=== PATIENT | female | born 1940 | race Caucasian/White ===

== ENCOUNTER 2025-01-15 14:01 | Emergency (ER) | payer MEDICARE, SELFPAY ==
[2025-01-15 14:31] VITALS: BP 159/74; PULSE 82; RESP 20; TEMP 36.7; O2SAT 97
--- NOTE | 2025-01-15 14:45 | ED.URI ---
HPI - URI/Sore Throat General Chief Complaint: Upper Respiratory Infection Stated Complaint: cold symptoms/cough Time Seen by Provider: 01/15/25 14:40 Source: patient, RN notes reviewed and old records reviewed Mode of arrival: ambulatory Limitations: no limitations History of Present Illness HPI Narrative: 84 yea benjamín female presents to [facility] care accompanied by sister with complaints of 3 day history of head cold with cough noted last evening. Patient reports concern for illness because she is prone for bronchitis. Patient is resident at [facility] she reports for the past 3 years. Sister reports to staff that patient does have history of dementia.Patient reports no ear pain or any sore throat and states she doesn't think she has had fevers and has no body aches anymore than usual. Patient reports that she has taken an allergy pill which hasn't helped. MD elicited complaint: cough, rhinorrhea, nasal congestion and sinus pain Pertinent past history: other (bronchitis) Onset (ago): day(s) (3 days) Severity: mild Description of mucous: yellow Able to tolerate fluids by mouth: Yes Treatments prior to arrival: other (allergy pill) Related Data Home Medications ?Medication ?Instructions ?Recorded ?Confirmed ?Last Taken ?Type clopidogrel 75 mg tablet mg 01/15/25 Unknown History ezetimibe 10 mg-simvastatin 40 mg tablet 01/15/25 Unknown History tablet famotidine 40 mg tablet mg 01/15/25 Unknown History fenofibrate nanocrystallized 145 mg PO 01/15/25 Unknown History mg tablet lactulose 10 gram/15 mL oral 01/15/25 Unknown History solution losartan 25 mg tablet mg 01/15/25 Unknown History memantine 5 mg tablet mg 01/15/25 Unknown History metformin 500 mg tablet,extended mg PO 01/15/25 Unknown History release 24 hr metronidazole 1 % topical gel topical 01/15/25 Unknown History venlafaxine 150 mg mg PO 01/15/25 Unknown History capsule,extended release 24 hr Allergies Allergy/AdvReac Type Severity Reaction Status Date / Time No Known Allergies Allergy Verified 01/15/25 14:28 Review of Systems Review of Systems: CONSTITUTIONAL: Denies malaise, chills, sweats, or fever. EYES: Denies visual changes, redness, or discharge. ENT: Reports rhinorrhea, congestion, sinus pain, otalgia and sore throat. CARDIOVASCULAR: Denies chest pain, palpitations, or edema. RESPIRATORY: Reports cough.? Denies dyspnea. GASTROINTESTINAL: Denies abdominal pain, nausea, vomiting, diarrhea SKIN: Denies rash or itching. MUSCULOSKELETAL: Denies myalgia. NEUROLOGIC: Denies headache. All systems reviewed & are unremarkable except as noted in HPI and below PMFSH Past Medical History Medical History (Updated 01/16/25 @ 14:07 by Tatiana Garcia APRN) Dementia Bronchitis Hyperlipidemia Diabetes Hypertension Social History Social History (Updated 01/16/25 @ 14:07 by Tatiana Garcia APRN) Smoking status: Never smoker Alcohol intake: never Substance use: never Living arrangements: assisted living Gender identity (if verbalized by the patient): Female Comments At time of signature, agree with nursing past medical, surgical, social and family history. There is no relevant family history pertinent to the presenting complaint Exam Narrative: GENERAL:elderly-appearing, well-nourished, and in no acute distress. HEAD: Normocephalic EYES: PERRLA, conjunctivae clear ENT: Nares clear, turbinates edematous and erythematous, clear to light yellow discharge, sinus pressure. Mucous membranes moist. TM pearly saucedo with dull light reflex bilaterally; no tragal tenderness. Oropharynx erythematous without lesions. Tonsils not enlarged and without exudate, no drooling, no hoarseness, no trismus, uvula midline.post nasal drainage NECK: Supple. No lymphadenopathy CHEST: Clear to auscultation, breath sounds equal. No wheezing, rhonchi, rales, or stridor. No respiratory distress, speaks in full sentences.reports cough since last evening, SAO2 97% on room air HEART: Regular rate and rhythm. No murmur heard. SKIN: Warm, dry, no rash. NEURO: Alert and oriented x3.able to answer questions appropriately though history of dementia PSYCH: Normal mood and affect Course Course Emergency Course: Patient is aware of diagnosis, understands and agrees to treatment plan.? Anticipatory guidance given.? Patient agrees to follow-up as directed and is aware of reasons to seek care at the emergency department. Portions of this record may have been created with voice recognition software Level of Care: Express Care Visit Vital Signs Vital signs: Vital Signs Temperature 36.7 C 01/15/25 14:31 Pulse Rate 82 01/15/25 14:31 Respiratory Rate 20 01/15/25 14:31 Blood Pressure 159/74 H 01/15/25 14:31 Pulse Oximetry 97 01/15/25 14:31 Temperature 36.7 C 01/15/25 14:31 Pulse Rate 82 01/15/25 14:31 Respiratory Rate 20 01/15/25 14:31 Blood Pressure 159/74 H 01/15/25 14:31 Pulse Oximetry 97 01/15/25 14:31 Reviewed MDM - URI/Sore Throat MDM Narrative Medical decision making narrative: Differential diagnosis considered: Lou virus, strep pharyngitis, allergic rhinitis, upper respiratory tract infection, sinusitis, rhinosinusitis, nasopharyngitis. viral pharyngitis, otitis media, otitis externa, pneumonia, bronchitis, viral cough syndrome, viral syndrome, and influenza.? Exam findings show no acute concerns or changes; patient is non-toxic appearing and is in no distress.? Patient is appropriate for outpatient treatment and follow-up. Differential Diagnosis Differential diagnosis: Likely upper respiratory infection, sinusitis, viral infection and other (cough) Lab Data Attestation: I reviewed the patient's lab results. Critical Care Time Critical Care Time Critical Care Time: No Discharge Plan Discharge Clinical Impression: Upper respiratory infection Qualifiers: URI type: unspecified URI Qualified Code(s): J06.9 - Acute upper respiratory infection, unspecified Patient Disposition: Home Condition: Stable Instructions: Antibiotic Form, Upper Respiratory Infection (DC) Additional Instructions: Increase fluids especially juices and water [id number] cough and cold medicine of your choice for your symptoms such as Robitussin DM or Delsym for cough Zyrtec Claritin or Flora daily may use Coricidin brand decongestant heat to the face 20-30 minutes 4-6 times a day for pain Salt water gargles, throat lozenges or throat sprays as desired Antibiotic as directed--finished the medication If your symptoms persist, change or worsen significantly before you can contact your personal physician then please, without delay, go to the emergency department for further evaluation. Follow-up with PCP in 7-10 days or sooner if needed Follow up with PCP soon in regards to your blood pressure which is elevated above threshold for referral. Blood pressure above 120/80 may indicate pre-hypertension.159/74 Patient Language: Mauritian Prescriptions: New amoxicillin 500 mg capsule 500 mg PO TID Qty: 21 0RF No Action famotidine 40 mg tablet venlafaxine 150 mg capsule,extended release 24hr PO clopidogrel 75 mg tablet losartan 25 mg tablet metformin 500 mg tablet extended release 24 hr PO memantine 5 mg tablet ezetimibe-simvastatin 10-40 mg tablet lactulose 10 gram/15 mL solution metronidazole 1 % gel TOPICAL fenofibrate nanocrystallized 145 mg tablet PO Follow-up/Referrals: PHYSICIAN NOT ON STAFF,NONSTAFF [Primary Care Provider] Time of Disposition: 14:49 Quality Will Coma Scale Eyes: Open Verbal: Oriented and Alert Motor: Follows Commands Will Coma Total Score: 15
--- OUTSIDE RECORDS SUMMARY | 2025-01-15 17:18 | XMS_ITS | Clinical Summary ---
Author Organization [facility] [email or web address] Address [address] [place] [address] Care Team Providers Care Java Programmer Analyst Name Role Phone Flavia Fernandez MD Primary Care Provider [phone] Flavia Fernandez MD Unavailable [phone] Source Comments [facility] [email or web address],non-owned Affiliates and Associated Physician Practices is amultiple site organization consisting of ambulatory clinics and hospital sitesin [place], [place], [place] and [place]. This disclosure is being madepursuant to the Care Everywhere program and may not contain all information available regarding this patient. Last updated 17.[facility] [email or web address] Allergies No known active allergies Medications * Be aware that medications may not be up to date on this document. Alwaysverify current medications with the patient. Aspirin 81 MG CAPS Take 81 mg by mouth once daily Active metroNIDAZOLE (Metrogel) 1 % gel APPLY TOPICALLY TO FACE TWICE DAILY 022 Active estradiol (Estrace) 0.1 MG/GM vaginal cream 1 g 022 Active Spacer/Aero-Holdi ng Chambers MEGHA Use 1 device every 4 hours as needed with albuterol 1 device 024 Active Ventolin HFA 108 (90 Base) MCG/ACT inhalerIndication s:Mild chronic obstructive pulmonary disease (HCC) INHALE 2 PUFFS EVERY 4 HOURS NEEDED FOR SHORTNESS OF BREATH 18 g 024 Active fluticasone-vilan terol (Breo Ellipta) 200-25 MCG/ACT inhaler Inhale 1 (one) puff by mouth once daily Administer at the same time each day. Rinse mouth after using 90 Each 3 024 Active docusate sodium (Colace) 100 MG capsule Take 1 (one) capsule by mouth 2 times daily 60 capsule 2 025 Active clopidogrel (plaVIX) 75 MG tablet Take 1 (one) tablet by mouth once daily 90 tablet 3 025 Active polyethylene glycol 3350 (Miralax) 17 GM/SCOOP powderIndications :Chronic idiopathic constipation Take 17 (seventeen) g by mouth once daily 578 g 11 025 Active metFORMIN ER 24hr (Glucophage XR) 500 MG tabletIndications :Type 2 diabetes mellitus without complication, without long-term current use of insulin (HCC) Take 1 (one) tablet by mouth daily with dinner 90 tablet 3 025 Active famotidine (Pepcid) 40 MG tabletIndications :Gastroesophageal reflux disease without esophagitis TAKE 1 TABLET EVERY DAY 90 tablet 3 025 Active losartan (Cozaar) 25 MG tabletIndications :Primary hypertension TAKE 1 TABLET EVERY DAY 90 tablet 3 025 Active fenofibrate (Tricor) 145 MG tabletIndications :Atherosclerosis of 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,Mixed hyperlipidemia TAKE 1 TABLET EVERY DAY 90 tablet 3 025 Active verapamil SR 24hr (Verelan) 120 MG capsule TAKE 1 CAPSULE BY MOUTH EVERY SUNDAY, SUNDAY AND SUNDAY 39 capsule 3 025 Active venlafaxine XR 24hr (Effexor XR) 150 MG capsule Take 1 (one) capsule by mouth once daily 90 capsule 4 025 Active ezetimibe-simvast atin (Vytorin) 10-40 MG tabletIndications :Atherosclerosis of 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,Mixed hyperlipidemia TAKE 1 TABLET EVERY DAY 90 tablet 3 025 Active ondansetron (Zofran) 4 MG tabletIndications :Nausea TAKE 1 TABLET EVERY 6 HOURS NEEDED FOR NAUSEA AND VOMITING 30 tablet 025 Active memantine (Namenda) 5 MG tabletIndications :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) Take 1 (one) tablet by mouth 2 times daily 180 tablet 1 025 Active memantine (Namenda) 5 MG tabletIndications :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) Take 1 (one) tablet by mouth 2 times daily 180 tablet 1 025 2024 Discontinued(R eorder) ondansetron (Zofran) 4 MG tabletIndications :Nausea TAKE 1 TABLET EVERY 6 HOURS NEEDED FOR NAUSEA AND VOMITING 30 tablet 025 2024 Discontinued Active Problems Problem Noted Date Diagnosed Date Moderate late onset Alzheime r's dementia without behavioral disturbance, psychotic disturbance, mood disturbance, or anxiety 01/08/2024 Type 2 diabetes mellitus wit h other circulatory complications 04/03/2023 Mild chronic obstructive pulmonary disease 01/29 Overview (01/29/2023): Noted on PFT 2022 Hypertensive retinopathy of both eyes 04/27/2022 Hollenhorst plaque 04/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 01/17/2021 Gastroesophageal reflux disease without esophagi tis 01/17/2021 Hypertension 01/17/2021 Vitamin D deficiency 01/17/2021 Resolved Problems Problem Noted Date Diagnosed Date Resolved Date Current severe episode of ma d[place] depressive disorder without psychotic features without prior episode 04/25/2022 10/09/2023 Pre-diabetes 02/17/2022 05/07/2024 B-cell lymphoma 02/15/2022 02/15/2022 Non-Hodgkin's lymphoma 02/15/202202/15 Seizure 12/21/2021 02/15/2022 Diabetes 01/17/2021 02/17/2022 Encounters Date Type Department Care Team Description 12/24/2024 2:10 PM CDT Office Visit [facility] [address], [address] [place] [address] Jose Adams MD Mitral valve disorder (Primary Dx); Atherosclerosis of wiyot coronary artery of wiyot heart, unspecified whether angina present; VELAZQUEZ (dyspnea on exertion); Coronary artery disease involving wiyot coronary artery of wiyot heart with other form of angina pectoris 12/21/2024 Results Follow-Up [facility] [id number] [place] [address], [address] [place] [address] Jose Adams MD 12/17/[address] [address] Flavia Fernandez MD MEDICATION REFILL 12/16/[address] [address] Flavia Fernandez MD Refill Request 12/15/2024 11:00 AM CDT - 12/15/2024 11:59 PM CDT Hospital Encounter [facility] [address], [address] [place] [address] Jose Adams MD Discharge Disposition: Home or Self Care 12/15/2024 Travel 12/07/[address] [address] Flavia Fernandez MD Refill Request 11/25/2024 1:15 PM CDT Office Visit [address] [address] Flavia Fernandez MD Primary hypertension (Primary Dx); Gait instability; 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 episode (HCC); Need for vaccination; Need for prophylactic vaccination and inoculation against influenza 10/29/2024 Refill [facility] [address], [address] [place] [address] Jose Adams MD Refill Request 10/23/2024 Results Follow-Up [address] [address] Flavia Fernandez MD Returned Call 10/21/2024 11:30 AM CDT Office Visit [address] [address] Flavia Fernandez MD Type 2 diabetes mellitus without complication, without long-term current use of insulin (HCC) (Primary Dx); Primary hypertension; Mixed hyperlipidemia; 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 (AF LURIA, FLUZONE TRIVALENT; 6MO+) (IIV3) 10/27/2016 COVID MODERNA 12+ yr 50mcg/0.5mL 11/25/2024,100 09/2023,12/07/2022 COVID MODERNA BIVALENT 12Y+ 50MCG/0.5ML 07/18/2022 COVID PFIZER BIVALENT 12Y+ 30mcg/0.3ML 02/15/2022 Covid Pfizer primary Monoval ent 5-11yr 0.2ml 11/17/2020 Covid Pfizer primary monoval ent 12+ yr 0.3mL Purple cap 01/17/2021,05/17/2020,04/26/2020 FLU VACCINE TRI IIV3 SPLIT I M (FLUVIRIN) 01/10/2017,03/21/2016,12/17/2012 FLU VACCINE TRI IIV3 SPLIT P F IM (FLUVIRIN) 10/27/2016 INFLUENZA VACCINE 12/21/2021,,11/10/2019,2018,11/28/2017 INFLUENZA VACCINE, ADJUVANTE D, TRIV. (FLUAD TRIVALENT; 65Y+) (AIIV3) 11/25/2024,12/04/2023,11/20/2018,2017 INFLUENZA VACCINE, HIGH-DOSE , QUADR. (FLUZONE HIGH-DOSE QUADRIVALENT; 65Y+), 0.7 ML (HD-IIV4) 12/07/2022,12/21/2021,11/12/2020,2020 INFLUENZA VACCINE, HIGH-DOSE , TRIV. (FLUZONE HIGH-DOSE TRIVALENT; 65Y+) (HD-IIV3) 11/08/2016,01/06/2015 PNEUMOCOCCAL PPV VACCINE 01/15/2019 Pneumococcal Pcv13 Conj 06/28/2015,06/28/2015 Family History Medical History Relation Name Comments Hypertension Daughter Other Son PAD severe Relation Name Status Comments Daughter Alive Son Alive Social History Tobacco Use Types Packs/Day Years Used Date Smoking Tobacco: Never Smokeless Tobacco: Never Tobacco Cessation:Counseling Given: Not Answered Alcohol Use Standard Drinks/Week Comments Not Currently 0 (1 standard drink = 0.6 oz pur e alcohol) PHQ-2 Answer Date Recorded Patient Health Questionnaire-2 Score 0 05/07/2024 Comments Unknown Sex and Gender Information Value Date Recorded Sex Assigned at Not on file Legal Sex Female 5:59 AM HISTOLOGY AIDE Gender Identity Not on file Sexual Orientation Not on file Last Filed Vital Signs Vital Sign Reading Time Taken Comments Blood Pressure 148/72 12/24/2024 2:26 PM CDT Pulse 82 12/24/2024 2:26 PM CDT Temperature 36.4 C (97.6 F) 01/09/2023 2:16 PM HISTOLOGY AIDE Respiratory Rate 16 12/06/2021 1:52 PM CDT Oxygen Saturation 96% 05/23/2024 1:50 PM CDT Inhaled Oxygen Concentration - - Weight 88.5 kg (195 lb) 12/24/2024 2:26 PM CDT Height 170.2 cm (5' 7) 11/25/2024 12:54 PM CDT Body Mass Index 30.54 11/25/2024 12:54 PM CDT Plan of Treatment Upcoming Encounters Date Type Department Care Team (Late st Contact Info) Description 03/25/2025 1:00 PM HISTOLOGY AIDE Office Visit [facility] - Family Medicine [address] [place] [id number] Flavia Fernandez MD [address] [place] [phone] Health Maintenance Due Date Last Done Comments DTAP/TDAP/TD VACCINES (1 - Tdap) 06/22/1959 ZOSTER VACCINE (1 of 2) 1990 Respiratory Syncytial Virus (RSV) Vaccine Pt: or over 60 yrs (1 - 1-dose 75+ series) 06/22/2015 DIABETES-HGB A1C 04/23/2025 10/21/2024, 01/2025, 10/09/2023, Additional history exists MEDICARE AWV 12 MONTHS 05/07/2025 05/07/2024, 04/03/2023, 02/15/2022 COVID-19 VACCINE ( season) 2025 11/25/2024, 12/04/2023, 12/07/2022, Additional history exists DIABETES - URINE PROTEIN SCREENING 10/21/2025 10/21/2024, 11/20/2023 DIABETES-FOOT EXAM WITH MONOFILAMENT 10/21/2025 10/21/2024 DIABETES-SERUM CREATININE 10/21/20252024, 11/20/2023, 01/09/2023, Additional history exists DIABETES RETINOPATHY SCREENING 07/30/2026 07/30/2024, 11/01/2022, 04/26/2022 BONE DENSITY TESTING Completed 04/04/2010 PNEUMOCOCCAL VACCINE 50+ Completed 019, 06/28/2015, 06/28/2015 DEPRESSION SCREENING Completed 05/07/2024, 04/03/2023, 07/26/2022, Additional history exists INFLUENZA VACCINE Completed 11/25/2024, , 12/07/2022, Additional history exists HEPATITIS B VACCINE Aged Out No longe r eligible based on patient's age to complete this topic HIB VACCINE Aged Out No longer eligi ble based on patient's age to complete this topic HPV VACCINE Aged Out No longer eligi ble based on patient's age to complete this topic MENINGOCOCCAL (Group B) VACCINE SHARED DECISION-MAKING Aged Out No longer eligible based on patient's age to complete this topic MENINGOCOCCAL GROUPS A/C/Y/W VACCINE Aged Out No longer eligible based on patient's age to complete this topic Procedures Procedure Name Priority Date/Time Associated Diagnosis Comments ECHO COMPLETE W CONTRAST Routine 12/15/2024 11:58 AM CDT Mitral valve disorder MICROALB/CREAT RATIO URINE RANDOM PANEL Routine 10/21/2024 12:17 PM CDT Type 2 diabetes mellitus without complication, without long-term current use of insulin (HCC) COMPREHENSIVE METABOLIC PANEL Routine 10/21/2024 12:17 PM CDT Type 2 diabetes mellitus without complication, without long-term current use of insulin (HCC) HEMOGLOBIN A1C W EAG Routine 10/21/2024 12:17 PM CDT Type 2 diabetes mellitus without complication, without long-term current use of insulin (HCC) EYE EXAM 07/30/2024 DEXA BONE DENSITY 2 SITES Routine 04/04/2010 12:21 PM HISTOLOGY AIDE Other malignant lymphomas of intrathoracic lymph nodes from Last 3 Months or Most Recently Relevant to Health Maintenance Results * ECHO COMPLETE W CONTRAST (12/15/2024 11:58 AM CDT) AV area index 0.479 cm /m SSM CV FUJI PACS LA vol index 0.033 l/m SSM CV FUJI PACS Dimensionless Index 0.396 unitless SSM CV FUJI PACS Myocardial strain charge 2 unitless SSM CV FUJI PACS IVSd 2D 1.44 cm SSM CV FUJ I PACS LVIDd 4.265 cm SSM CV FUJ I PACS LVIDs 3.297 cm SSM CV FUJ I PACS LVOT diam 1.788 cm SSM CV FUJ I PACS LVPWd 1.109 cm SSM CV FUJ I PACS LV biplane EF 48.059 % SSM CV FUJI PACS LV A2C EF 43.129 % SSM CV FUJ I PACS LV A4C EF 50.16 % SSM CV FUJ I PACS LV EDV A2C 115.439 ml SSM CV FU JI PACS LV EDV A4C 117.943 ml SSM CV FU JI PACS LV ESV A2C 65.652 ml SSM CV FU JI PACS LV ESV A4C 58.783 ml SSM CV FU JI PACS LVOT pk grad 1.973 mmHg SSM CV FUJI PACS LVOT VTI 18.507 cm SSM CV FUJ I PACS LA vol BP 68.138 ml SSM CV FUJ I PACS AV area cont VTI 0.993 cm SSM CV FUJI PACS AV pk grad 18.137 mmHg SSM CV FU JI PACS AV mn grad 10.963 mmHg SSM CV FU JI PACS AV pk gideon 212.94 cm/s SSM CV FUJ I PACS AV VTI 46.77 cm SSM CV FUJ I PACS MV A pk gideon 180.93 cm/s SSM CV F UJI PACS MV E pk gideon 125.783 cm/s SSM CV F UJI PACS MV mn grad 3.552 mmHg SSM CV FU JI PACS MV VTI 47.294 cm SSM CV FUJ I PACS PV pk gideon 74.487 cm/s SSM CV FUJ I PACS TAPSE 2.876 cm SSM CV FUJ I PACS TR pk gideon 331.806 cm/s SSM CV FUJ I PACS Ascending aorta 2.873 cm SSM CV FUJI PACS Anatomical Region Laterality Modality Ultrasound 12/15/2024 11:1 1 AM CDT Narrative 12/17/2024 4:18 PM CDT Summary * The left ventricle is normal in size with mildly reduced systolic function and an estimated ejection fraction of 45-50% by visual estimate. Left ventricular wall motion is globally hypokinetic. * The left ventricular diastolic function is consistent with grade I diastolic dysfunction and normal left atrial filling pressure. * Right ventricle is normal in size with normal systolic function. * The pulmonary artery systolic pressure is moderately elevated, 52 mmHg. Patient Info Name: Jannet Pablo Age: 84 years : 1940 Gender: Female Ht: 67 in Wt: 195 lb BSA: 2.07 m2 HR: 76 bpm BP: 121 / 61 mmHg Exam Date: 12/15/2024 11:11 AM Patient Status: O/P Study Site: [facility] Primary Location: [facility] Info Technical Quality: Technically Difficult Exam Type: ECHO COMPLETE W CONTRAST Indications I05.9 - Mitral valve disorder Procedure(s) * A complete 2D, color Doppler, spectral Doppler, and M-Mode transthoracic echocardiogram was performed. * An Ultrasound Enhancing Agent (UEA) was utilized to enhance endocardial definition, opacify the left ventricle and further assess left ventricular function and wall motion. Contrast/Agitated Saline Contrast / Saline: Definity Amount: 0.52 ml Reaction to Contrast: no Reason for Technically Difficult Study: poor acoustic windows Staff Referring Physician: Jose Adams Ordering Provider: Jose Adams Attending Physician: Jose Adams Senior Software Systems Engineer: Margy Gamino Left Ventricle The left ventricle is normal in size. Left ventricular systolic function is mildly reduced with an estimated ejection fraction of 45-50% by visual estimate. The left ventricular mass is normal. Left ventricular segmental wall motion is globally hypokinetic. The left ventricular diastolic function is consistent with grade I diastolic dysfunction and normal left atrial filling pressure. Right Ventricle The right ventricle is normal in size. Right ventricular systolic function is normal. Left Atrium The left atrium is normal in size with a left atrial volume index of 33 ml/m2 by BP MOD. Right Atrium The right atrium is normal in size. Atrial Septum Intact interatrial septum visualized by 2D and color Doppler imaging. Aortic Valve The aortic valve is trileaflet. There is no aortic valve stenosis. There is trace aortic valve regurgitation. Pulmonic Valve The pulmonic valve is normal. There is no pulmonic valve stenosis. There is no pulmonic regurgitation. Mitral Valve The mitral valve is normal. There is no mitral valve stenosis. There is trace mitral valve regurgitation. Tricuspid Valve The tricuspid valve is normal. There is mild tricuspid valve regurgitation. The pulmonary artery systolic pressure is moderately elevated, 52 mmHg. Inferior Vena Cava The inferior vena cava is not well visualized and therefore the right atrial pressure is assumed to be 8 mmHg. Pericardium/Pleural There is no pericardial effusion. Aorta The aortic root at the sinus of Valsalva is normal in size. The ascending aorta is normal in size. Measurements Left Ventricular Outflow Tract Name Value Normal LVOT 2D LVOT Diameter 1.8 cm LVOT Area 2.5 cm2 LVOT Doppler LVOT Peak Gradient 2 mmHg LVOT Mean Velocity 54.92 cm/s LVOT Mean Gradient 1 mmHg LVOT VTI 18.5 cm LVOT VTI/AV VTI Ratio 0.4 LVOT Stroke Volume 46 ml LVOT Stroke Volume Index 22 ml/m2 35-58 LVOT CO 3.3 l/min LVOT CI 1.6 l/min/m2 Pulmonic Valve Name Value Normal PV Doppler PV Peak Velocity 0.7 m/s PV Peak Gradient 2 mmHg Mitral Valve Name Value Normal MV Doppler MV Peak Gradient 11 mmHg MV Mean Gradient 4 mmHg MV DI (VTI) 2.56 MV PHT 105 ms MV Area (PHT) 2.09 cm2 4.00-5.00 MV Area (Cont Eq VTI) 0.98 cm2 MV Diastolic Function MV E Peak Velocity 1.3 m/sec MV A Peak Velocity 1.8 m/sec MV E/A 0.7 MV Decel Time (PW) 251 ms MV Annular TDI MV Septal e' Velocity 3 cm/s >=8 MV E/e' (Septal) 42 <=8 Tricuspid Valve Name Value Normal TV Regurgitation Doppler TR Peak Velocity 3.3 m/s TR Peak Gradient 44 mmHg Estimated PAP/RSVP RA Pressure 8 mmHg <=5 PA Systolic Pressure 52 mmHg <35 RV Systolic Pressure 52 mmHg <36 TV Annular TDI TV Lateral Shruti s' Velocity 13 cm/s 10-19 Aorta Name Value Normal Ascending Aorta Ao Root Diameter (MM) 2.4 cm Ao Root Diam Index (MM) 1.2 cm/m2 Asc Ao Diameter 2.9 cm 1.9-3.5 Asc Ao Diameter Index 1.4 cm/m2 1.0-2.2 Aortic Valve Name Value Normal AV 2D/MM AV Cusp Sep (MM) 1.5 cm AV Doppler AV Peak Velocity 2.13 m/s AV Peak Gradient 18 mmHg AV Mean Gradient 11 mmHg AV VTI 47 cm AV Area (Cont Eq VTI) 0.99 cm2 >=2.00 AV DI (VTI) 0.40 AV Regurgitation 2D LVOT Area 2.51 cm2 Ventricles Name Value Normal LV Dimensions 2D/MM IVS Diastolic Thickness (2D) 1.4 cm 0.6-0.9 LVID Diastole (2D) 4.3 cm 3.8-5.2 LVPW Diastolic Thickness (2D) 1.1 cm 0.6-0.9 LVID Systole (2D) 3.3 cm 2.2-3.5 LV Mass (2D Cubed) 199 g 67-162 LV Mass Index (2D Cubed) 96 g/m2 43-95 Relative Wall Thickness (2D) 0.52 <=0.42 LV Fractional Shortening/Ejection Fraction 2D/MM LV Fractional Shortening (2D) 23 % 27-45 LV EF (2D Teicholz) 46 % 54-74 LV Diastolic Volume (4C MOD) 118 ml LV EF (4C MOD) 50 % LV Diastolic Volume (2C MOD) 115 ml LV EF (2C MOD) 43 % LV Diastolic Volume (BP MOD) 119 ml 46-106 LV Diastolic Volume Index (BP MOD) 57 ml/m2 29-61 LV Systolic Volume (BP MOD) 62 ml 14-42 LV Systolic Volume Index (BP MOD) 30 ml/m2 8-24 LV EF (BP MOD) 48 % 54-74 LV Diastolic Length (4C) 7.6 cm LV Systolic Length (4C) 6.5 cm LV Stroke Volume (4C MOD) 59 ml RV Dimensions 2D/MM TAPSE 2.9 cm >=1.7 Atria Name Value Normal LA Dimensions LA Dimension (MM) 4.0 cm 2.7-3.8 LA Volume (BP MOD) 68 ml LA Volume Index (BP MOD) 33 ml/m2 16-34 Report Signatures Finalized by Jose Adams on 12/17/2024 04:18 PM Procedure Note Jose Adams MD - 12/17/2024 Summary * The left ventricle is normal in size with mildly reduced systolicfunction and an estimated ejection fraction of 45-50% by visual estimate. Left ventricular wall motion is globally hypokinetic. * The left ventricular diastolic function is consistent with grade I diastolic dysfunction and normal left atrial filling pressure. * Right ventricle is normal in size with normal systolic function. * The pulmonary artery systolic pressure is moderately elevated, 52mmHg. Patient Info Name: Jannet Pablo Age: 84 years : 1940 Gender: Female Ht: 67 in Wt: 195 lb BSA: 2.07 m2 HR: 76 bpm BP: 121 / 61 mmHg Exam Date: 12/15/2024 11:11 AM Patient Status: O/P Study [facility] Technical Quality: Technically Difficult Exam Type: ECHO COMPLETE W CONTRAST Indications I05.9 - Mitral valve disorder Procedure(s) * A complete 2D, color Doppler, spectral Doppler, and M-Modetransthoracic echocardiogram was performed. * An Ultrasound Enhancing Agent (UEA) was utilized to enhanceendocardial definition, opacify the left ventricle and further assess leftventricular function and wall motion. Contrast/Agitated Saline Contrast / Saline: Definity Amount: 0.52 ml Reaction to Contrast: no Reason for Technically Difficult Study: poor acoustic windows Staff Referring Physician: Jose Adams Ordering Provider: Jose Adams Attending Physician: Jose Adams Senior Software Systems Engineer: Margy Gamino Left Ventricle The left ventricle is normal in size. Left ventricular systolic functionis mildly reduced with an estimated ejection fraction of 45-50% by visual estimate. The left ventricular mass is normal. Left ventricular segmentalwall motion is globally hypokinetic. The left ventricular diastolic functionis consistent with grade I diastolic dysfunction and normal left atrialfilling pressure. Right Ventricle The right ventricle is normal in size. Right ventricular systolicfunction is normal. Left Atrium The left atrium is normal in size with a left atrial volume index of33 ml/m2 by BP MOD. Right Atrium The right atrium is normal in size. Atrial Septum Intact interatrial septum visualized by 2D and color Doppler imaging. Aortic Valve The aortic valve is trileaflet. There is no aortic valve stenosis. Thereis trace aortic valve regurgitation. Pulmonic Valve The pulmonic valve is normal. There is no pulmonic valve stenosis. Thereis no pulmonic regurgitation. Mitral Valve The mitral valve is normal. There is no mitral valve stenosis. Thereis trace mitral valve regurgitation. Tricuspid Valve The tricuspid valve is normal. There is mild tricuspid valveregurgitation. The pulmonary artery systolic pressure is moderately elevated, 52 mmHg. Inferior Vena Cava The inferior vena cava is not well visualized and therefore the rightatrial pressure is assumed to be 8 mmHg. Pericardium/Pleural There is no pericardial effusion. Aorta The aortic root at the sinus of Valsalva is normal in size. Theascending aorta is normal in size. Measurements Left Ventricular Outflow Tract Name Value Normal LVOT 2D LVOT Diameter 1.8 cm LVOT Area 2.5 cm2 LVOT Doppler LVOT Peak Gradient 2 mmHg LVOT Mean Velocity 54.92 cm/s LVOT Mean Gradient 1 mmHg LVOT VTI 18.5 cm LVOT VTI/AV VTI Ratio 0.4 LVOT Stroke Volume 46 ml LVOT Stroke Volume Index 22 ml/m2 35-58 LVOT CO 3.3 l/min LVOT CI 1.6 l/min/m2 Pulmonic Valve Name Value Normal PV Doppler PV Peak Velocity 0.7 m/s PV Peak Gradient 2 mmHg Mitral Valve Name Value Normal MV Doppler MV Peak Gradient 11 mmHg MV Mean Gradient 4 mmHg MV DI (VTI) 2.56 MV PHT 105 ms MV Area (PHT) 2.09 cm2 4.00-5.00 MV Area (Cont Eq VTI) 0.98 cm2 MV Diastolic Function MV E Peak Velocity 1.3 m/sec MV A Peak Velocity 1.8 m/sec MV E/A 0.7 MV Decel Time (PW) 251 ms MV Annular TDI MV Septal e' Velocity 3 cm/s >=8 MV E/e' (Septal) 42 <=8 Tricuspid Valve Name Value Normal TV Regurgitation Doppler TR Peak Velocity 3.3 m/s TR Peak Gradient 44 mmHg Estimated PAP/RSVP RA Pressure 8 mmHg <=5 PA Systolic Pressure 52 mmHg <35 RV Systolic Pressure 52 mmHg <36 TV Annular TDI TV Lateral Shruti s' Velocity 13 cm/s 10-19 Aorta Name Value Normal Ascending Aorta Ao Root Diameter (MM) 2.4 cm Ao Root Diam Index (MM) 1.2 cm/m2 Asc Ao Diameter 2.9 cm 1.9-3.5 Asc Ao Diameter Index 1.4 cm/m2 1.0-2.2 Aortic Valve Name Value Normal AV 2D/MM AV Cusp Sep (MM) 1.5 cm AV Doppler AV Peak Velocity 2.13 m/s AV Peak Gradient 18 mmHg AV Mean Gradient 11 mmHg AV VTI 47 cm AV Area (Cont Eq VTI) 0.99 cm2 >=2.00 AV DI (VTI) 0.40 AV Regurgitation 2D LVOT Area 2.51 cm2 Ventricles Name Value Normal LV Dimensions 2D/MM IVS Diastolic Thickness (2D) 1.4 cm 0.6-0.9 LVID Diastole (2D) 4.3 cm 3.8-5.2 LVPW Diastolic Thickness (2D) 1.1 cm 0.6-0.9 LVID Systole (2D) 3.3 cm 2.2-3.5 LV Mass (2D Cubed) 199 g 67-162 LV Mass Index (2D Cubed) 96 g/m2 43-95 Relative Wall Thickness (2D) 0.52 <=0.42 LV Fractional Shortening/Ejection Fraction 2D/MM LV Fractional Shortening (2D) 23 % 27-45 LV EF (2D Teicholz) 46 % 54-74 LV Diastolic Volume (4C MOD) 118 ml LV EF (4C MOD) 50 % LV Diastolic Volume (2C MOD) 115 ml LV EF (2C MOD) 43 % LV Diastolic Volume (BP MOD) 119 ml 46-106 LV Diastolic Volume Index (BP MOD) 57 ml/m2 29-61 LV Systolic Volume (BP MOD) 62 ml 14-42 LV Systolic Volume Index (BP MOD) 30 ml/m2 8-24 LV EF (BP MOD) 48 % 54-74 LV Diastolic Length (4C) 7.6 cm LV Systolic Length (4C) 6.5 cm LV Stroke Volume (4C MOD) 59 ml RV Dimensions 2D/MM TAPSE 2.9 cm >=1.7 Atria Name Value Normal LA Dimensions LA Dimension (MM) 4.0 cm 2.7-3.8 LA Volume (BP MOD) 68 ml LA Volume Index (BP MOD) 33 ml/m2 16-34 Report Signatures Finalized by Jose Adams on 12/17/2024 04:18 PM us Jose Bryan MD ECHO CUPID Final Result * (ABNORMAL) HEMOGLOBIN A1C W EAG (10/21/2024 12:17 PM CDT) Hemoglobin A1c 6.8(H) <5.7 % [facility] INSURANCE BILL Estimated Average Glucose 148 mg/dL [facility] INSURANCE BILL Comment: HbA1c Interpretation: Normal: < 5.7% Pre-diabetes: 5.7-6.4% Diabetes: Equal to or greater than 6.5% Test results diagnostic of diabetes should be repeated for c onfirmation. Treatment target values recommended by ADA and other clinica l organizations should be used to evaluate metabolic control in patients. This test should not replace glucose testing for patients wi th Type 1 diabetes, pediatric patients, or women. Falsely low HbA1c results may be observed in patients with c linical conditions that shorten erythrocyte life span or dec rease mean erythrocyte age such as the presence of unstable hemoglobin variants, elevated hemoglobin F level or other ca uses of hemolytic anemia. HbA1c may not accurately reflect glycemic control when clinical conditions that affect erythr ocyte survival are present. Severe Iron deficiency anemia m ay yield falsely high results. Hemoglobin A1c assay should not be used to diagnose or monitor diabetes in patients with malignancy, recent blood transfusion, chronic kidney or ina er disease. This method may yield falsely low results when hemoglobin (HbF) exceeds 5% in the specimen. The Terry Alinity assay for the measurement of HbA1c is a [facility] Glycohemoglobin Standardization Program (NGSP) certi fied method. Blood BLOOD SPECIMEN / Unknown 10/21/2024 12:17 PM CDT 10/21/2024 Narrative [facility] INSURANCE BILL - 10/21/2024 9:08 PM CDT Performed at: [address] [place] [address] [facility] [address] , [place] [id number] Die Repairer Trimmer Dies: Raza Benito [facility], Phone: [phone] us Flavia Fernandez MD LAB - CHEMISTRY ORDERABLES Fin al Result [facility] INSURANCE BILL [address] [place] [address] * MICROALB/CREAT RATIO URINE RANDOM PANEL (10/21/2024 12:17 PM CDT) Creatinine Urine 81.82 mg/dL [facility] INSURANCE BILL Microalbumin Urine 1.9 mg/dL [facility] INSURANCE BILL Microalbumin/Crea tinine Ratio 23 <30 mg/g [facility] INSURANCE BILL Urine URINE SPECIMEN OBTAINED BY CLEAN CATCH PROCEDURE / Unknown 10/21/2024 12:17 PM CDT 10/21/2024 Narrative [facility] INSURANCE BILL - 10/21/2024 9:08 PM CDT Performed at: [address] [place] [address] [id number] , [place], [place] [id number] Die Repairer Trimmer Dies: Raza Benito [facility], Phone: [phone] Flavia Fernandez MD LAB - URINE CHEMISTRY ORDERABL ES Final Result [facility] INSURANCE BILL [address] [place] [address] * (ABNORMAL) COMPREHENSIVE METABOLIC PANEL (10/21/2024 12:17 PM CDT) Glucose 113(H) 70 - 99 mg/dL [facility] INSURANCE BILL BUN 11 7 - 26 mg/dL [facility] INSURANCE BILL Creatinine 0.93 0.57 - 1.11 mg/dL [facility] INSURANCE BILL eGFR by CKD-EPI 61(L) >=90 mL/min/1.7 3 m2 [facility] INSURANCE BILL Comment: Estimated Glomerular Filtration Rate (eGFR) calculated using the CKD-EPI Creatinine Equation (2020), per the [employer] [place] [employer] [employer] and [place] [employer] of [employer]ph[employer] recommend ations. Sodium 143 136 - 145 mmol/L [facility] INSURANCE BILL Potassium 4.1 3.5 - 5.1 mmol/L [facility] INSURANCE BILL Chloride 105 98 - 107 mmol/L [facility] INSURANCE BILL CO2 28 22 - 29 mmol/L [facility] INSURANCE BILL Calcium 10.3 8.4 - 10.4 mg/dL [facility] INSURANCE BILL Protein Total 7.2 6.4 - 8.3 gm/dL [facility] INSURANCE BILL Albumin 4.4 3.1 - 4.5 gm/dL [facility] INSURANCE BILL Bilirubin Total 0.4 0.2 - 1.2 mg/dL [facility] INSURANCE BILL Alkaline Phosphatase 52 40 - 150 U/L [facility] INSURANCE BILL AST 26 10 - 48 U/L [facility] INSURANCE BILL ALT 18 6 - 57 U/L [facility] INSURANCE BILL Blood BLOOD SPECIMEN / Unknown 10/21/2024 12:17 PM CDT 10/21/2024 Narrative [facility] INSURANCE BILL - 10/21/2024 11:08 PM CDT Performed at: [address] [place] [address] [id number] , [place], [place] [id number] Die Repairer Trimmer Dies: Alirezaracielkareem Benito [facility], Phone: [phone] us Flavia Fernandez MD LAB - CHEMISTRY ORDERABLES Fin al Result [facility] INSURANCE BILL [address] [place] [address] * EYE EXAM (07/30/2024) Anatomical Region Laterality Modality Other 07/30/2024 Narrative 07/30/2024 Ordered by an unspecified provider. us Scanned Document SCANNING ONLY Final Result * DEXA BONE DENSITY 2 SITES (04/04/2010 12:21 PM HISTOLOGY AIDE) Anatomical Region Laterality Modality Mammography 04/04/2010 12:1 7 PM HISTOLOGY AIDE Narrative 04/04/2010 12:17 PM HISTOLOGY AIDE BONE MINERAL DENSITY STUDY INDICATION: Osteoporosis screening. FINDINGS: The average bone mineral density from L1 to L4 is 1.657 g/cm2. The T-score is 4.0 and the Z-score is 4.7. The average bone mineral density of the total mean hip is 1.291 g/cm2. The T-score is 2.2 and the Z-score is 3.0. ASSESSMENT: Findings consistent with normal total mean bone mineral density. No significant increased fracture risk. WORLD HEALTH ORGANIZATION DEFINITIONS OSTEOPENIA = -1 to -2.5 SD BELOW T SCORE. OSTEOPOROSIS = Less than -2.5 SD BELOW T SCORE Procedure Note Bina Griffin MD - 04/04/2010 BONE MINERAL DENSITY STUDY INDICATION: Osteoporosis screening. FINDINGS: The average bone mineral density from L1 to L4 is 1.657 g/cm2. The T-score is 4.0 and the Z-score is 4.7. The average bone mineral density of the total mean hip is 1.291 g/cm2. The T-score is 2.2 and the Z-score is 3.0. ASSESSMENT: Findings consistent with normal total mean bone mineral density. No significant increased fracture risk. WORLD HEALTH ORGANIZATION DEFINITIONS OSTEOPENIA = -1 to -2.5 SD BELOW T SCORE. OSTEOPOROSIS = Less than -2.5 SD BELOW T SCORE Jesse Valadez MD DEXA ORDERABLES Final Result from Last 3 Months or Most Recently Relevant to Health Maintenance Insurance [facility] MEDICARE MEDICARE [facility] Care Teams Java Programmer Analyst Relationship Specialty Start Date End Date Flavia Fernandez MD [address] [place] [address] PCP - General Family Medicine 04/25/22 Flavia Fernandez MD [address] [place] [address] PCP - Attributed-[facility] 05/28/23
--- OUTSIDE RECORDS SUMMARY | 2025-01-15 17:18 | XMS_ITS | Encounter Summary ---
Author Organization [facility] Address 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) Social History Tobacco Use Types Packs/Day Years Used Date Smoking Tobacco: Never Assessed Comments Unknown Sex and Gender Information Value Date Recorded Sex Assigned at Not on file Legal 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
--- OUTSIDE RECORDS SUMMARY | 2025-01-15 17:18 | XMS_ITS | Encounter Summary ---
Author Organization [facility] Address [address] [place] [address] Care Team Providers Care Distribution Tech Name Role Phone Flavia Fernandez MD Primary Care Provider [phone] Flavia Fernandez MD Unavailable [phone] Encounter Details Date Type Department Care Team (Late st Contact Info) Description 12/21/2024 Results Follow-Up [facility] [id number] [place] [address], [address] [address] [place] [address] [id number] Social History Tobacco Use Types Packs/Day Years Used Date Smoking Tobacco: Never Smokeless Tobacco: Never Alcohol Use Standard Drinks/Week Comments Not Currently 0 (1 standard drink = 0.6 oz pur e alcohol) PHQ-2 Answer Date Recorded Patient Health Questionnaire-2 Score 0 05/07/2024 Comments Unknown Sex and Gender Information Value Date Recorded Sex Assigned at Not on file Legal Sex Female 5:59 AM RAIL SWITCH OPERATOR Gender Identity Not on file Sexual Orientation Not on file documented as of this encounter Plan of Treatment Upcoming Encounters Date Type Department Care Team (Late st Contact Info) Description 03/25/2025 1:00 PM RAIL SWITCH OPERATOR Office Visit [facility] - Family Medicine [address] [place] [address] Flavia Fernandez MD [address] [place] [phone] documented as of this encounter Visit Diagnoses Not on filedocumented in this encounter Care Teams Distribution Tech Relationship Specialty Start Date End Date Flavia Fernandez MD [address] [place] [address] PCP - General Family Medicine 04/25/22 Flavia Fernandez MD [address] [place] [address] PCP - Attributed-[facility] 05/28/23 documented as of this encounter
--- OUTSIDE RECORDS SUMMARY | 2025-01-15 17:18 | XMS_ITS | Clinical Summary ---
Author Organization [facility] Address [address] [place] [address] Care Team Providers Care Molasses And Caramel Operator Name Role Phone Dell Cotton MD Primary Care Provider [phone] Allergies No known active allergies Medications clopidogreL (PLAVIX) 75 mg tablet [address] (CYMBALTA) 30 mg capsule 0 Active ezetimibe-simvastati n (VYTORIN) 10-40 mg per tablet 0 Active famotidine (PEPCID) 40 mg tablet 0 Active fenofibrate nanocrystallized (TRICOR) 145 mg tablet 0 Active triamterene-hydroCHL OROthiazide 37.5-25 mg per capsule 0 Active metroNIDAZOLE 1 % gel with pump GLENDA EXT TO FACE BID 0 Active metFORMIN XR (GLUCOPHAGE XR) 500 mg 24 hr tablet 1 Active nortriptyline (PAMELOR) 10 mg capsule Take 10 mg by mouth nightly 1 Active verapamil ER (VERELAN) 120 mg 24 hr capsule 1 Active estradioL (ESTRACE) 0.01 % (0.1 mg/gram) vaginal cream Apply to vagina Sunday/Wedn / Sunday. 42.5 g 2 3 Active Active Problems No known active problems Surgical History Surgery Date Site/Laterality Comments TONSILLECTOMY AND ADENOIDECTOMY 02/26/1943 - 02/26/1944 APPENDECTOMY HYSTERECTOMY BREAST LUMPECTOMY Medical History Medical History Date Comments Diabetes mellitus TIA (transient ischemic attack) Sleep apnea Family History Medical History Relation Name Comments Stroke Brother Colon cancer Child Stroke Father Breast cancer Father's Sister Uterine cancer Father's Sister Breast cancer Other Breast cancer Sister Ovarian cancer Neg Hx Relation Name Status Comments Brother Child Father Father's Sister Other Sister Social History Tobacco Use Types Packs/Day Years Used Date Smoking Tobacco: Never Smokeless Tobacco: Never Alcohol Use Standard Drinks/Week Comments Not Currently 0 (1 standard drink = 0.6 oz pur e alcohol) Humiliation, Afraid, Rape, and Kick questionnair e Answer Date Recorded Within the last year, have y ou been afraid of your partner or ex-partner? No 01/05/2020 Within the last year, have y ou been humiliated or emotionally abused in other ways by your partner or ex-partner? No Within the last year, have y ou been kicked, hit, slapped, or otherwise physically hurt by your partner or ex-partner? No 01/05/2020 Within the last year, have y ou been raped or forced to have any kind of sexual activity by your partner or ex-partner? No 01/05/2020 Social Connection and Isolation Panel Answer Date Recorded Frequency of Communication with Friends and Fami ly Not on file 01/05/2020 Frequency of Social Gatherings with Friends and Family Not on file 01/05/2020 Attends [employer] Services Not on file 01/04 Active Member of Clubs or Organizations Not on f ile 01/05/2020 Attends Club or Organization Meetings Not on tim e 01/05/2020 Are you , , di vorced, , never , or living with a partner? 01/05/2020 Comments No Sex and Gender Information Value Date Recorded Sex Assigned at Not on file Legal Sex Female 1:15 AM MACHINING TECHNICIAN Gender Identity Not on file Sexual Orientation Not on file Last Filed Vital Signs Vital Sign Reading Time Taken Comments Blood Pressure 126/80 02/01/2021 2:10 PM MACHINING TECHNICIAN Pulse - - Temperature - - Respiratory Rate - - Oxygen Saturation - - Inhaled Oxygen Concentration - - Weight 82.6 kg (182 lb) 02/01/2021 2:10 PM MACHINING TECHNICIAN Height 171.5 cm (5' 7.5) 02/01/2021 2:10 PM MACHINING TECHNICIAN Body Mass Index 28.08 02/01/2021 2:10 PM MACHINING TECHNICIAN Plan of Treatment Health Maintenance Due Date Last Done Comments Depression Screening 1940 Fall Risk Assessment 1940 Osteoporosis Screening-Bone Density Scan 1940 DTaP/Tdap/Td Vaccine (1 - Tdap) 06/22/1951 Hepatitis B Screening 1958 Zoster Vaccine (1 of 2) 06/22/1959 Well Visit 65+ 2005 Covid-19 Vaccine (5 - 2024-2 6 season) 2024 07/18/2022, 01/17/2021, 05/17/2020, Additional history exists Influenza Vaccine (#1) 2024 , 12/08/2020, 11/12/2020, Additional history exists Pneumococcal vaccine 65+ Completed 01/15/2019, 03/2015 Insurance MEDICARE [facility] Address: [address] [address] [place] [address] [facility] MEDICARE [facility] Care Teams Molasses And Caramel Operator Relationship Specialty Start Date End Date Dell Cotton MD [address] [place] [address] [place] [address] PCP - General Rheumatology 01/05/20
--- OUTSIDE RECORDS SUMMARY | 2025-01-15 17:18 | XMS_ITS | Clinical Summary ---
Author Organization [facility] Address [address] [place] [address] Care Team Providers Care Kst Operator Name Role Phone Dell Silva MD Primary Care Provider [phone] Social History Tobacco Use Types Packs/Day Years Used Date Smoking Tobacco: Never Assessed Comments Unknown Sex and Gender Information Value Date Recorded Sex Assigned at Not on file Legal Sex Female 5:42 AM MANAGER ENT Gender Identity Not on file Sexual Orientation Not on file Plan of Treatment Health Maintenance Due Date Last Done Comments DTAP/TDAP/TD VACCINES (1 - Tdap) 06/22/1959 ZOSTER VACCINE (1 of 2) 06/22/1959 OSTEOPOROSIS SCREENING 2005 RSV VACCINE (60+ or ) (1 - 1-dose 75+ series) 06/22/2015 INFLUENZA VACCINE (#1) 2024 , 11/12/2020, 05/10/2020, Additional history exists COVID-19 Vaccine (2024-2 6 season) 2024 01/17/2021, 11/17/2020, 05/17/2020, Additional history exists PNEUMOCOCCAL VACCINE 50+ YEARS Completed 01/15/2019 , 06/28/2015 Insurance MEDICARE PART A AND B Care Teams Kst Operator Relationship Specialty Start Date End Date Dell Silva MD PCP - General 02/12/15
== END 2025-01-15 14:56 | disposition home or self-care (01) ==
PROVIDERS: Emergency Provider Registered Nurse
DX: J06.9 Acute upper respiratory infection, unspecified (principal); F03.90 Unspecified dementia, unspecified severity, without behavioral disturbance, psychotic disturbance, mood disturbance, and anxiety; E11.9 Type 2 diabetes mellitus without complications; Z79.84 Long term (current) use of oral hypoglycemic drugs; I10 Essential (primary) hypertension; E78.5 Hyperlipidemia, unspecified
CPT/HCPCS: 99203; G0463